=== PATIENT | male | born 1965 | race Caucasian/White ===

== ENCOUNTER → 2023-11-21 11:20 | Outpatient (REF) | payer OTHER, SELFPAY | LOC: DHCBC/DCA 11:20 | PROVIDERS: ATTENDING PHYSICIAN Nuclear Medicine Nuclear Cardiology; FAMILY PHYSICIAN Family Medicine | DX: I25.10 Atherosclerotic heart disease of native coronary artery without angina pectoris (principal); I21.02 ST elevation (STEMI) myocardial infarction involving left anterior descending coronary artery; R07.89 Other chest pain; Z98.61 Coronary angioplasty status | CPT/HCPCS: 78452; 93017; A9500 ==

== ENCOUNTER → 2025-01-28 11:20 | Outpatient (REF) | payer OTHER, SELFPAY | LOC: HWRCS 11:20 | PROVIDERS: ATTENDING PHYSICIAN Nuclear Medicine Nuclear Cardiology | DX: I21.02 ST elevation (STEMI) myocardial infarction involving left anterior descending coronary artery (principal); I25.10 Atherosclerotic heart disease of native coronary artery without angina pectoris; Z98.61 Coronary angioplasty status; E78.5 Hyperlipidemia, unspecified | CPT/HCPCS: 93306 ==